=== PATIENT | female | born 1960 | race Caucasian/White ===

== ENCOUNTER 2019-09-29 19:52 | Observation (INO) | payer OTHER ==
[2019-09-29] MEDS ORDERED: Morphine 4 MG/ML VIAL ONE ×2 (20:10→22:28)
--- NOTE | 2019-09-29 21:08 | ULT ---
RIGHT UPPER QUADRANT ULTRASOUND: Date: 09-29-2019 History: Right upper quadrant pain. Technique: Multiplanar grayscale sonographic imaging of the right upper quadrant provided. FINDINGS: Partially imaged pancreas appears grossly unremarkable. Echogenic foci in the region of the gallbladder neck noted, evidence of cholelithiasis. Gallbladder w all is thickened, measuring 5-6 mm. The common bile duct is dilated, measuring 10-11 mm. There is mil d intrahepatic biliary dilation as well. The right kidney measures 10.1 cm in craniocaudal dimension and demonstrates no stone, hydronephrosis or mass. The rural service engineer reports a positive Guerrero's sign. IMPRESSION: Positive Guerrero's sign with gallbladder wall thickening and cholelithiasis is concerning for acute ch olecystitis. Dilation of the common bile duct is noted as well, which may be on the basis of nonvisua lized choledocholithiasis. Surgical consultation advised. POS: AAYUSH
[2019-09-29] MEDS ORDERED: Ondansetron ODT 4 MG TAB SL PRN (23:52)
[2019-09-29] MEDS ORDERED: Ondansetron PF 4 MG/2 ML Vial IVP PRN (23:52)
[2019-09-29] MEDS ORDERED: Morphine 2 MG/ML VIAL SLOW IVP PRN (23:53)
[2019-09-29] MEDS ORDERED: Morphine 4 MG/ML VIAL SLOW IVP PRN (23:54)
[2019-09-30] MEDS: Sodium Chloride 0.9% 1,000 ML IV SCH ×2 (00:02→02:56)
[2019-09-30] MEDS ORDERED: Morphine 2 MG/ML VIAL SLOW IVP PRN ×2 (00:05→00:45)
[2019-09-30] MEDS ORDERED: Morphine 4 MG/ML VIAL SLOW IVP PRN (00:05)
[2019-09-30] MEDS: Piperacillin/Tazobactam 3.375 GM in Sodium Chloride 0.9% 100 ML IVPB SCH ×2 (00:10→05:45)
[2019-09-30 00:23] VITALS: BMI 32.4
[2019-09-30] MEDS: Morphine 4 MG/ML VIAL SLOW IVP PRN ×3 (00:47→06:10)
[2019-09-30 07:57] LABS: #Eosinphils 0.1 thou/uL (0.0-0.7); #Lymphocytes 1.2 thou/uL (1.20-3.40); #Monocytes 1.4 thou/uL (0.11-0.59); #Neutrophils 10.7 thou/uL (1.40-6.50); %Basophils 0.1 % (0.0-1.0); %Eosinophils 0.4 % (0.0-10.0); %Lymphocytes 8.9 % (21.0-51.0); %Monocytes 10.7 % (0.0-10.0); %Neutrophils 79.9 % (42.0-75.0); Mean Corpuscular HGB CONC 32.2 g/dL (32.0-36.0); Mean Platelet Volume 8.7 fL (7.4-10.4); Platelet Count 237 thou/uL (130-400); RBC Distribution Width 12.2 % (11.5-14.5); White Blood Cell (WBC) Count 13.5 thou/uL (4.8-10.8)
[2019-09-30 08:08] LABS: ALT (SGPT) 27 U/L (8-55); AST (SGOT) 24 U/L (5-34); Albumin 3.9 g/dL (3.5-5.0); Alkaline Phosphatase 79 U/L (40-110); Anion Gap 14 mmol/L (10-20); BUN (Urea Nitrogen) 14 mg/dL (9.8-20.1); Calc. Creatinine Clearance 111 mL/min (70-130); Carbon Dioxide 25 mmol/L (22-29); Chloride 105 mmol/L (98-107); Estimated GFR-MDRD 71; Globulin 3.1 g/dL (2.4-3.5); Glucose 121 mg/dL (70-105); Potassium 3.7 mmol/L (3.5-5.1); Sodium 140 mmol/L (136-145)
[2019-09-30] MEDS ORDERED: traMADol HCl 50 MG TAB PO PRN ×2 (10:59)
[2019-09-30] MEDS ORDERED: Ketorolac Tromethamine 30 MG/ML VIAL IVP PRN (10:59)
[2019-09-30] MEDS ORDERED: Ketorolac Tromethamine 30 MG/ML VIAL IVP SCH (11:00)
[2019-09-30] MEDS ORDERED: Acetaminophen 500 MG TAB PO SCH (11:15)
[2019-09-30] MEDS ORDERED: Bupivacaine PF 0.5% 30 ML VIAL ONE (11:36)
[2019-09-30] MEDS ORDERED: Lidocaine 1% w/Epinephrine 1:100K 20 ML VIAL ONE (11:36)
[2019-09-30] MEDS ORDERED: Iopamidol 50 ML FS ONE (11:36)
[2019-09-30] MEDS ORDERED: Fentanyl 100 MCG/2 ML VIAL ONE ×2 (11:38→14:07)
[2019-09-30] MEDS ORDERED: Ketorolac Tromethamine 30 MG/ML VIAL ONE (11:39)
[2019-09-30 11:48] LABS: SARS-CoV-2 MS2 Positive; SARS-CoV-2 N Gene Negative; SARS-CoV-2 S Gene Negative; SARS-CoV-2 by NAA Not Detected (NotDetected); SARS-CoV-2 orf1ab Negative
[2019-09-30] MEDS ORDERED: HYDROmorphone 0.5 MG/0.5 ML SYRINGE ONE (11:53)
[2019-09-30] MEDS ORDERED: Rocuronium Bromide 10 MG/ML (10ML VIAL) ONE (12:03)
[2019-09-30] MEDS ORDERED: Dexamethasone 20 MG/5 ML VIAL ONE (12:03)
[2019-09-30] MEDS ORDERED: PHENYLEPHRINE-NS 100 MCG/ML 10 ML SYRINGE ONE (12:03)
[2019-09-30] MEDS ORDERED: PROPOFOL 200 MG/20 ML VIAL ONE (12:03)
[2019-09-30] MEDS ORDERED: Ondansetron PF 4 MG/2 ML Vial ONE (12:03)
[2019-09-30] MEDS ORDERED: Lidocaine 1% PF 5 ML VIAL ONE (12:03)
--- NOTE | 2019-09-30 12:03 | HP ---
HISTORY OF PRESENT ILLNESS: Kerri Louis is a 59-year-old female with chronic epigastric pain. She has attributed it to gas in the past. She presented with severe pain yesterday, presented to the emergency room with normal liver function test, bile duct of 11 mm, multiple gallstones, and sonographic positive Guerrero sign. She has been afebrile overnight. Plan is for laparoscopic cholecystectomy, cholangiograms, possible ERCP. Risks of infection, bleeding, visceral and biliary injury, open procedure, bile duct injury, risk of ERCP including pancreatitis, bleeding, reoperation, and perforation were discussed. ALLERGIES: NONE. TOBACCO: None. ALCOHOL: None. MEDICATIONS: Antihypertensive that she cannot recall the name of. PAST SURGICAL HISTORY: . She had a colonoscopy in her 20s. She has not had a colonoscopy since. PAST MEDICAL HISTORY: Noncontributory. FAMILY HISTORY: Her father had coronary artery disease and coronary artery bypass grafting in the 70s. He is still living and doing well. He did not have a myocardial infarction. REVIEW OF SYSTEMS: Noncontributory. PHYSICAL EXAMINATION: VITAL SIGNS: Height 5 feet 7 inches, weight 207 pounds, 32 BMI, temperature 98.8 degrees, pulse 79, respirations 16, blood pressure 119/78. HEAD, EARS, EYES, NOSE AND THROAT: Unremarkable. Sclerae are nonicteric. SKIN: Nonjaundiced. LUNGS: Clear to auscultation. CARDIAC: Regular rate and rhythm. No murmur or gallop. ABDOMEN: Soft, tenderness in right upper quadrant without guarding or rebound. Positive Guerrero sign. EXTREMITIES: Unremarkable. LABORATORY DATA: Liver function tests normal. White count slightly elevated. ASSESSMENT AND PLAN: Acute cholecystitis. Recommend laparoscopic video cholecystectomy, cholangiograms, possible endoscopic retrograde cholangiopancreatography. Risks of infection, bleeding, and reoperation discussed. She consents. Job ID: [id number]
[2019-09-30] MEDS ORDERED: Glycopyrrolate 0.2 MG/ML 5 ML SYRINGE ONE (12:04)
[2019-09-30] MEDS ORDERED: Iothalamate Meglumine 60% 50 ML VIAL FS ONE (12:56)
[2019-09-30] MEDS ORDERED: Indomethacin 50 MG SUPP ONE (12:56)
[2019-09-30] MEDS ORDERED: Ondansetron ODT 8 MG TAB SL PRN (13:46)
[2019-09-30] MEDS ORDERED: Ondansetron ODT 4 MG TAB PO PRN (13:46)
[2019-09-30] MEDS ORDERED: Ondansetron PF 4 MG/2 ML Vial IVP PRN (13:46)
[2019-09-30] MEDS: Lactated Ringer's 1,000 ML IV SCH ×2 (15:05→18:05)
--- NOTE | 2019-09-30 15:43 | RAD ---
INTRAOPERATIVE CHOLANGIOGRAM: HISTORY: Cholelithiasis. Single portable fluoroscopic spot film demonstrates contrast injected into the common duct with reflu x into the duodenum. There are multiple small filling defects in the distal common bile duct certain ly concerning for multiple small choledocholithiasis. The common hepatic duct and upper common bile duct are minimally dilated. IMPRESSION: Minimal dilatation of the common hepatic duct and upper common bile duct. Minimal dilatation of the common hepatic duct and upper common bile duct. Multiple small filling defects within the distal common duct, certainly concerning for small choledoc holithiasis. There is emptying from the common bile duct into the duodenum. POS: RRE
--- NOTE | 2019-09-30 15:44 | RAD ---
EXAM: ERCP HISTORY: Choledocholithiasis COMPARISON: 09/30/2019 cholangiogram FINDINGS: Limited intraoperative fluoroscopic views were taken during a an ERCP. Multiple small filling defects are seen in the common bile duct which is mildly enlarged. These are n ot seen on the last image. No leakage from the common bile duct. No abnormality of the intrahepatic bile ducts. IMPRESSION: Choledocholithiasis
--- NOTE | 2019-09-30 15:49 | OP ---
DATE OF PROCEDURE: 09/30/2019 PREOPERATIVE DIAGNOSES: 1. Acute cholecystitis. 2. Cholelithiasis. 3. Choledocholithiasis. 4. Common bile duct 11 mm. 5. Normal liver function tests. POSTOPERATIVE DIAGNOSES: 1. Acute cholecystitis. 2. Cholelithiasis. 3. Choledocholithiasis, but with positive cholangiogram. 4. Common bile duct 11 mm. 5. Normal liver function tests. PROCEDURE PERFORMED: Laparoscopic video cholecystectomy. FINDINGS: Intraoperative cholangiograms using fluoroscopy revealing free flow of contrast to the duodenum without obstruction, but with multiple filling defects indicative of choledocholithiasis. ANESTHESIA: General anesthesia and local with 0.5% Marcaine 30 mL, mixed with 1% Xylocaine with epinephrine 20 mL. DESCRIPTION OF PROCEDURE: The patient was taken to the operating room where under general anesthesia, abdomen was prepared with ChloraPrep and draped in routine fashion. Local anesthetic mixture was infiltrated into the skin and subcutaneous tissue about all port sites. Infraumbilical incision made. Pneumoperitoneum to 15 mmHg was obtained with a Veress needle, replacing with a 5 port, video laparoscope inserted. Right subxiphoid incision was made and 11 port placed, right subcostal incision made at the midclavicular entrance line and the 5 port was placed. The gallbladder was acutely inflamed, walled off by omentum, which was stripped down, identifying the fundus, grasping it after slight decompression and reflecting it cephalad. Liver appeared to be normal. Infundibulum was grasped and reflected laterally. Cystic artery and duct dissected free. Critical view obtained. Cystic artery doubly clipped proximally, cystic duct singly clipped on the gallbladder side, opening made. A cholangiocatheter was inserted in the cystic duct, obtaining cholangiogram using fluoroscopy, revealing free flow of contrast in the dilated common hepatic and common bile, intrahepatic and extrahepatic ducts with free flow into the duodenum, that tapered nicely in the distal common bile duct, but with multiple filling defects in the common bile duct. Cholangiocatheter was removed. Cystic duct stump triply clipped and divided. Cystic artery and duct divided. Gallbladder dissected free from inflammatory attachments to the liver bed and submitted to Pathology. Once removed, multiple stones were present. Good hemostasis noted in the liver bed. Jerome was used. Irrigant and pneumoperitoneum evacuated. All instruments were removed. All skin incisions were approximated with interrupted subdermal 4-0 Monocryl and [place] glue applied. Job ID: [id number]
--- NOTE | 2019-09-30 17:57 | CON ---
DATE OF CONSULTATION: 09/30/2019 CHIEF COMPLAINT: Abdominal pain. HISTORY OF PRESENT ILLNESS: Ms. Louis is a 59-year-old woman who presented to the emergency room with right upper quadrant abdominal pain. She has had this on and off over the last month. She had an ultrasound performed in the emergency room last night, which showed gallbladder thickening and cholelithiasis with dilation of the common bile duct to 11 mm. Mild intrahepatic duct dilation was also reported. She has had no fever with this. No nausea, vomiting, diarrhea, constipation, or blood in the stool. She was evaluated by General Surgery and is undergoing cholecystectomy with intraoperative cholangiogram today. I talked to her prior to surgery. We discussed ERCP. If intraoperative cholangiogram showed a stone, then we would follow through this immediately following the surgery. PAST MEDICAL HISTORY: Otherwise negative. PAST SURGICAL HISTORY: . FAMILY HISTORY: Negative for GI malignancies. SOCIAL HISTORY: No alcohol, tobacco, or drugs. ALLERGIES: NO KNOWN DRUG ALLERGIES. MEDICATIONS: She takes blood pressure medicine but does not recall the name. Inpatient medications include levofloxacin. REVIEW OF SYSTEMS: Negative x10 systems reviewed except as stated in the history of present illness. PHYSICAL EXAMINATION: VITAL SIGNS: Temperature 98.8, pulse 79, blood pressure 119/78. GENERAL: She is in no acute distress. Alert and oriented x3. LUNGS: Clear to auscultation bilaterally. HEART: Regular rate and rhythm without murmur. ABDOMEN: Soft. Minimal tenderness in the right upper quadrant without guarding. Bowel sounds are present. EXTREMITIES: No lower extremity edema. LABORATORY DATA: White blood cell count 13.5, hemoglobin 13.0, platelets 237, creatinine 0.83, bilirubin 1.0, AST 24, ALT 27, alkaline phosphatase 79, albumin 3.9. COVID was negative. IMPRESSION: 1. Acute cholecystitis. 2. Abnormal imaging of the abdomen showing dilation of the common bile duct and cholelithiasis with possible concern for choledocholithiasis. Her liver function tests are normal. Therefore, plan is to proceed with laparoscopic cholecystectomy with intraoperative cholangiogram. If intraoperative cholangiogram is positive, then the plan will be to follow through with ERCP. RECOMMENDATIONS: 1. ERCP if intraoperative cholangiogram is positive. 2. Risks and benefits of the ERCP were discussed including bleeding, infection, perforation, acute pancreatitis, and failure to cannulate. Job ID: [id number]
--- NOTE | 2019-09-30 18:50 | OP ---
DATE OF PROCEDURE: 09/30/2019 PROCEDURE PERFORMED: Endoscopic retrograde cholangiopancreatography with sphincterotomy. PREOPERATIVE DIAGNOSIS: Choledocholithiasis. DESCRIPTION OF PROCEDURE: Informed consent was obtained from the patient prior to her gallbladder surgery. Procedure was performed with the same general anesthesia as the gallbladder surgery. She was transferred to the endoscopy suite and placed in the prone position on the fluoroscopy table. The duodenoscope was advanced easily to the second portion of the duodenum. The ampulla appeared unremarkable with good flow of clear yellow bile. The common bile duct was cannulated easily with the guidewire alone. The catheter was advanced over the guidewire and cholangiogram was performed. This revealed no obvious filling defects. A complete sphincterotomy was performed. There was complete drainage of bile and contrast. The 12 to 15 mm balloon was swept through the duct at 12 mm. The 12 mm balloon passed easily through the sphincterotomy without resistance. However, after passage of the balloon, there was some very slight oozing of blood and visualization of fibers at the sphincterotomy site, but no obvious perforation. The duct was swept again and there was a minimal amount of debris swept from the duct, but no stones. Occlusion cholangiogram was then performed, which confirmed the duct to be clear. The air and fluid were suctioned from her stomach, and the scope was removed, and she tolerated the procedure well without immediate complications. IMPRESSION: 1. Normal appearing ampulla with good flow of clear yellow bile. 2. The common bile duct was cannulated easily with a wire alone. 3. Cholangiogram showed the common bile duct dilated to 12 mm and the common hepatic duct dilated up to 13 mm. The intrahepatic ducts were unremarkable. 4. Complete sphincterotomy was performed with rapid drainage of the contrast and bile. 5. A 12 mm balloon was used to sweep the bile ducts with removal of a minimal amount of sludge. The balloon passes easily without resistance to the sphincterotomy site. 6. Occlusion cholangiogram confirmed the duct to be clear. RECOMMENDATIONS: 1. Recheck her liver tests in the morning. 2. Anticipate discharge home tomorrow morning if she does well following the procedure. Job ID: [id number]
[2019-09-30] MEDS ORDERED: Enoxaparin Sodium 40 MG/0.4 ML SYRINGE SC SCH (21:00)
[2019-10-01] MEDS: Acetaminophen 500 MG TAB PO PRN ×2 (01:55→10:50)
[2019-10-01 06:11] LABS: #Lymphocytes 1.1 thou/uL (1.20-3.40); #Monocytes 1.2 thou/uL (0.11-0.59); #Neutrophils 12.3 thou/uL (1.40-6.50); %Eosinophils 0.1 % (0.0-10.0); %Lymphocytes 7.7 % (21.0-51.0); %Monocytes 7.9 % (0.0-10.0); %Neutrophils 84.3 % (42.0-75.0); Hemoglobin 10.7 g/dL (12.0-16.0); Mean Corpuscular HGB CONC 33.7 g/dL (32.0-36.0); Mean Corpuscular Hemoglobin 30.2 pg (27.0-31.0); Mean Corpuscular Volume 89.7 fL (78.0-98.0); Mean Platelet Volume 8.8 fL (7.4-10.4); Platelet Count 211 thou/uL (130-400); RBC Distribution Width 11.7 % (11.5-14.5); Red Blood Cell (RBC) Count 3.56 mill/uL (4.20-5.40); White Blood Cell (WBC) Count 14.5 thou/uL (4.8-10.8)
[2019-10-01 06:35] LABS: ALT (SGPT) 91 U/L (8-55); AST (SGOT) 75 U/L (5-34); Albumin 3.2 g/dL (3.5-5.0); Alkaline Phosphatase 75 U/L (40-110); Anion Gap 12 mmol/L (10-20); BUN (Urea Nitrogen) 11 mg/dL (9.8-20.1); Bilirubin, Total 0.7 mg/dL (0.2-1.2); Calc. Creatinine Clearance 118 mL/min (70-130); Calcium 8.6 mg/dL (7.8-10.44); Carbon Dioxide 24 mmol/L (22-29); Chloride 102 mmol/L (98-107); Estimated GFR-MDRD 76; Globulin 2.7 g/dL (2.4-3.5); Glucose 141 mg/dL (70-105); Potassium 3.4 mmol/L (3.5-5.1); Protein, Total 5.9 g/dL (6.0-8.3); Sodium 135 mmol/L (136-145)
[2019-10-01] MEDS: Lactated Ringer's 1,000 ML IV SCH ×2 (06:52→10:53)
[2019-10-01] MEDS ORDERED: Polyethylene Glycol 3350 17 GM Packet PO SCH (09:00)
--- NOTE | 2019-10-01 10:18 | PRG ---
DATE OF SERVICE: 10/01/2019 SUBJECTIVE: The patient feels fine. Her nausea had resolved overnight. There is no abdominal pain. She tolerated a regular diet this morning, but did not eat much because of no appetite. PHYSICAL EXAMINATION: VITAL SIGNS: Temperature is 98.7, blood pressure 115/74, pulse is 75. GENERAL: She is alert, conversant, does not appear in distress. HEENT: Shows anicteric sclerae. Oropharynx is moist. CV: Shows normal S1 and S2. Regular rate and rhythm. CHEST: Shows breath sounds. ABDOMEN: Soft and mildly tender. She has active bowel sounds. EXTREMITIES: Showed no edema. LABORATORY DATA: WBCs 14.5, hemoglobin 10.7, platelet count of 211. Electrolytes within normal range. Bilirubin 0.7, alkaline phosphatase 75, AST 75, ALT 91. ASSESSMENT: 1. Status post laparoscopic cholecystectomy for cholelithiasis, negative ERCP afterward. 2. Status post sphincterotomy, no complication overnight. 3. Mild elevation of AST and ALT, likely from occlusive cholangiogram performed with ERCP yesterday. I suspect complete resolution with time. RECOMMENDATIONS: 1. The patient can be discharged to home from GI standpoint. 2. Repeat LFT with postoperative followup. Job ID: [id number]
[2019-10-01 11:26] VITALS: BP 147/85; TEMP 98.1
--- NOTE | 2019-10-02 13:16 | DIS ---
DATE OF ADMISSION: 09/29/2019 DATE OF DISCHARGE: 10/01/2019 DISCHARGE DIAGNOSES: Acute cholecystitis, cholelithiasis, choledocholithiasis. PROCEDURES THIS HOSPITALIZATION: Laparoscopic video cholecystectomy. CONSULTATION: Dr. Roldan Virk, ERCP under the same anesthetic. HISTORY: A 59-year-old female presenting with abdominal pain, noted to have an 11-mm bile duct cholecystitis, cholelithiasis, normal liver function test, underwent laparoscopic cholecystectomy, cholangiogram suggesting choledocholithiasis. Dr. Virk performed ERCP, sphincterotomy and postoperatively, the patient monitored in the hospital till convalescing to have pain under control and tolerated diet and discharged home with Tylenol, Motrin, Ultram, and resuming her home medications. Diet and activity as tolerated. Follow up in my office in 2 to 3 weeks. Job ID: [id number]
[2019-10-05] MEDS ORDERED: Ibuprofen 600 MG TAB PO PRN (17:00)
== END 2019-10-01 14:05 | disposition home or self-care (01) ==
LOC: ERS 19:52 → SJJU 21:33
PROVIDERS: ADMIT Surgery; ATTEND Specialist
PROC: 0FT44ZZ Resection of Gallbladder, Percutaneous Endoscopic Approach (ICD-10-PCS; principal; 2019-10-01)
PROC: BF031ZZ Plain Radiography of Gallbladder and Bile Ducts using Low Osmolar Contrast (ICD-10-PCS; 2019-10-01)
PROC: 0F798ZZ Dilation of Common Bile Duct, Via Natural or Artificial Opening Endoscopic (ICD-10-PCS; 2019-10-01)
DX: K80.67 Calculus of gallbladder and bile duct with acute and chronic cholecystitis with obstruction (principal); Z79.899 Other long term (current) drug therapy
CPT/HCPCS: 36415; 36600; 47532; 74330; 76705; 80053; 85025; 87635; 88304; 96361; 96365; 96366; 96372; 96374; 96375; 96376; G0378; J1100; J1170; J1610; J1650; J1885; J1956; J2270; J2405; J2543; J2704; J3010; J3490; Q9967; S0020; U0003